=== PATIENT | female | born 1990 | race Caucasian/White ===

== ENCOUNTER 2019-06-20 10:57 | Outpatient (CLI) | payer BC, SELFPAY ==
[2019-06-20] VITALS (8 sets, daily range): BP systolic 114–127; BP diastolic 56–66; PULSE 76–82; BMI 35.6
--- NOTE | ~2019-06-20 | US_ITS ---
EXAMINATION: US OB BPP wo non-stress EXAM DATE: 06/20/2019 12:49 INDICATION: Hypertension in . Third trimester. TECHNIQUE: Pelvic obstetrical transabdominal sonogram was performed by a technologist. There are mu ltiple grayscale and Doppler images available for interpretation. Comparison is made to prior examina tion from 04/02/2019. FINDINGS: There is a single fetus identified in vertex presentation with a heart rate of 136 beats pe r minute. The placenta is located in the fundal position. There is no sonographic evidence of retrop lacental hemorrhage identified. There is subjectively expected amount of amniotic fluid. BIOPHYSICAL PROFILE (performed by the technologist) breathing (30 sec sustained breathing in 30 minutes): 2 out of 2 movement (3 gross body movements in 30 minutes): 2 out of 2 tone (one episode of hzlbyls-dplhcyqtd-ajjdoag limb movement): 2 out of 2 Amniotic fluid pocket (2 cm): 2 out of 2 Total score: 8 out of 8 IMPRESSION: 1. Single fetus with heart rate of 136 bpm. 2. Normal biophysical profile score of 8 out of 8. Reviewed, dictated and finalized at location B. 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
[2019-06-20 12:42] LABS: Basophils Percent Auto 0.3 % (0.2-1.2); Eosinophils Absolute Auto 0.1 K/mm3 (0-0.3); Eosinophils Percent Auto 0.7 % (0-4.4); Hematocrit 33.8 % (37.0-47.0); Hemoglobin 10.8 g/dL (12.0-15.0); Immature Granulocyte Absolute 0.07 K/mm3 (0.00-0.031); Immature Granulocyte Percent A 0.7 % (0-0.5); Lymphocytes Absolute Auto 2.27 K/mm3 (0.9-3.2); Lymphocytes Percent Auto 21.9 % (18.3-44.2); Mean Corpuscular Hemoglobin 27.1 pg (26-34); Mean Corpuscular Volume 84.9 fl (80-100); Mean Platelet Volume 11.1 fl (7.4-10.4); Monocytes Absolute Auto 0.5 K/mm3 (0.1-0.6); Monocytes Percent Auto 4.9 % (2.6-8.5); Neutrophils Absolute Auto 7.4 K/mm3 (1.3-6.7); Neutrophils Percent Auto 71.5 % (45.5-73.1); Platelet Count Result 172 k/mm3 (150-375); Red Blood Count 3.98 M/mm3 (4.2-5.4); Red Cell Distribution Width 13.8 % (11.5-14.5); White Blood Count 10.4 K/mm3 (4.5-10.0)
[2019-06-20 12:46] LABS: Add Urine Microscopic? NO; Appearance Urine Clear (Clear); Bilirubin Urine Negative (Negative); Blood Urine Negative (Negative); Color Urine Colorless (Yellow); Glucose Urine UA Negative (Negative); Ketones Urine Negative (Negative); Leukocyte Esterase Ur Negative LEU/UL (Negative); Nitrate Urine Negative (Negative); Protein Urine Negative (Negative); Specific Grav Ur 1.006 (1.001-1.035); Urobilinogen Urine Negative mg/dL (<2.0)
[2019-06-20 12:47] LABS: Bacteria Urine Trace /hpf; Squamous Epithelial Cell Urine Few /hpf (Few); WBC Urine 0-3 /hpf
[2019-06-20 12:53] LABS: Creatinine Urine 24.4 mg/dL; Total Protein Urine Random 12 mg/dL
[2019-06-20 12:54] LABS: Alanine Aminotransferase 12 U/L (4-35); Albumin Level 3.4 g/dL (3.5-5.1); Alkaline Phosphatase 110 U/L (38-126); Aspartate Amino Transferase 16 U/L (14-36); Bilirubin,Total 0.1 mg/dL (0.2-1.3); Blood Urea Nitrogen 8 mg/dL (7-17); Calcium 8.8 mg/dL (8.4-10.2); Carbon Dioxide 22 mmol/L (22-30); Chloride 103 mmol/L (98-107); Estimated Glomerular Filt Rate > 60; Glucose 98 mg/dL (65-105); Glucose 1 Hour PP 50gm Dose 103 mg/dL; Potassium 4.1 mmol/L (3.4-5.0); Sodium 138 mmol/L (137-145); Uric Acid 3.5 mg/dL (2.5-7.5)
--- NOTE | 2019-06-20 13:01 | PC.NURSE ---
Dr. Marte returned call and informed of BP's, reactive NST, BPP 12/13, and lab results. OK to discharge pt to home. Pt to complete 24 hr urine collection and return to OB unit.
== END 2019-06-20 13:08 | disposition home or self-care (01) ==
LOC: ANHOBOP 11:01 → ANHOBPP 11:02
PROVIDERS: Visit Provider Obstetrics & Gynecology
DX: O13.9 Gestational [pregnancy-induced] hypertension without significant proteinuria, unspecified trimester (principal); Z3A.00 Weeks of gestation of pregnancy not specified
CPT/HCPCS: 36415; 59025; 76819; 80053; 81003; 82570; 82947; 84156; 84550; 85025

== ENCOUNTER 2019-06-21 12:34 | Outpatient (CLI) | payer BC, SELFPAY ==
[2019-06-21 13:04] VITALS: BMI 36.2
[2019-06-21 13:35] LABS: Collection Time Urine 24 HOURS
[2019-06-21 13:42] LABS: Creatinine Urine 57.9 mg/dL; Patient Weight 224 Lbs; Total Protein Urine Random 11 mg/dL
[2019-06-21 14:17] LABS: Creatinine Clearance Urine 171.8 ml/min (75-125); Specific Gravity Ur 1.008; Total Volume 24 Hour Urine 3100 ml
[2019-06-21 16:32] LABS: Total Protein Urine 24 Hr < 7 MG/DAY (28-141)
== END 2019-06-21 12:35 | disposition home or self-care (01) ==
PROVIDERS: Visit Provider Obstetrics & Gynecology
DX: O13.9 Gestational [pregnancy-induced] hypertension without significant proteinuria, unspecified trimester (principal); Z3A.00 Weeks of gestation of pregnancy not specified
CPT/HCPCS: 81050; 82575; 84156

== ENCOUNTER 2019-07-19 08:24 | Observation (INO) | payer BC, SELFPAY ==
[2019-07-19] VITALS (8 sets, daily range): BP systolic 118–133; BP diastolic 60–69; PULSE 78–91; BMI 36.6
--- NOTE | ~2019-07-19 | US_ITS ---
EXAMINATION: US OB follow up w BPP, US umbilical doppler DATE: 07/20/2019 07:48 INDICATION: Oligohydramnios, third trimester TECHNIQUE: Real-time pelvic ultrasound was performed. The interpreting radiologist was not present fo r the study. COMPARISON: 07/19/2019 FINDINGS: There is a single living fetus in breech presentation. The placenta is fundal. heart rate is 14 2 beats per minute (bpm). The amniotic fluid index is 7.4 cm which is low (normal range: 8.6 cm to 24 .2 cm). Biophysical profile performed by the technologist: breathing (30 sec sustained breathing in 30 minutes): 2 out of 2 movement (3 gross body movements in 30 minutes): 2 out of 2 tone (one episode of gzstzhv-fpsgbesgj-tpirklq limb movement): 2 out of 2 Amniotic fluid pocket (2 cm): 2 out of 2 Total score: 8 out of 8 Umbilical artery pulsed Doppler demonstrates peak systolic to end-diastolic velocity ratios (S/D rati os) of 2.4, 2.2 near the fetus, 3.0, 2.6 in the mid cord, and 2.4, 2.3 near the placenta (5th percent ile = 2.16, 95th percentile = 3.81). The following biometric data were obtained: Biparietal diameter (BPD): 8.1 cm; head circumference (HC): 30.4 cm; abdominal circumference (AC): 29 .6 cm; femur length (FL): 6.6 cm. These measurements are concordant. Estimated weight is 2272 g +/- 340 g, which correlates with the 74th percentile when 09/09/2019 i s used as estimated date of delivery. As single measurements, these parameters are each equal to the following estimated gestational ages w ith ranges of +/- 2 standard deviations: BPD: 32 weeks 5 days +/- 3 weeks 1 days. HC: 33 weeks 6 days +/- 3 weeks 0 days. AC: 33 weeks 4 days +/- 3 weeks 0 days. FL: 34 weeks 3 days +/- 3 weeks 0 days. estimated gestational age based solely on measurements from this exam is 33 weeks 5 days +/- 2 weeks 2 days. IMPRESSION: 1. Single living fetus in breech presentation. 2. Biophysical profile 8 out of 8. 3. Oligohydramnios. 4. Normal umbilical artery Dopplers. 5. Estimated weight is 2272 g +/- 340 g, which correlates with the 74th percentile when 0 is used as estimated date of delivery. Reviewed, dictated and finalized at location A. IMPRESSION: 1. Single living fetus in breech presentation. 2. Biophysical profile 8 out of 8. 3. Oligohydramnios. 4. Normal umbilical artery Dopplers. 5. Estimated weight is 2272 g +/- 340 g, which correlates with the 74th p ercentile when 09/09/2019 is used as estimated date of delivery.
--- NOTE | 2019-07-19 08:24 | OBADM ---
This patient, Sapphire Blount, admitted to the OB room OB Post 113 for observation. Patient/family oriented to hospital policies and general routines including ID bracelet, bed and alarms, visiting hours, pain management, procedures, bathroom and other care routines, personal items, smoking policy, room service/diet, and visiting hours. Patient/Family are encouraged to report perceived risks to care and to ask questions if they do not understand what they are told or what they should do.
[2019-07-19] MEDS: SODIUM CHLORIDE 0.9% IV 1,000 ML 125 ML IV CONT ×2 (10:48→18:46)
[2019-07-19 10:55] LABS: Basophils Percent Auto 0.3 % (0.2-1.2); Eosinophils Percent Auto 0.3 % (0-4.4); Hematocrit 33.8 % (37.0-47.0); Immature Granulocyte Absolute 0.07 K/mm3 (0.00-0.031); Immature Granulocyte Percent A 0.7 % (0-0.5); Lymphocytes Absolute Auto 2.32 K/mm3 (0.9-3.2); Lymphocytes Percent Auto 21.8 % (18.3-44.2); Mean Corpuscular HGB Conc 32.5 g/dl (32-36); Mean Corpuscular Hemoglobin 26.9 pg (26-34); Mean Corpuscular Volume 82.6 fl (80-100); Mean Platelet Volume 11.4 fl (7.4-10.4); Monocytes Absolute Auto 0.5 K/mm3 (0.1-0.6); Monocytes Percent Auto 4.8 % (2.6-8.5); Neutrophils Absolute Auto 7.7 K/mm3 (1.3-6.7); Neutrophils Percent Auto 72.1 % (45.5-73.1); Platelet Count Result 185 k/mm3 (150-375); Red Blood Count 4.09 M/mm3 (4.2-5.4); Red Cell Distribution Width 13.8 % (11.5-14.5); White Blood Count 10.7 K/mm3 (4.5-10.0)
[2019-07-19 11:07] LABS: Potassium 3.8 mmol/L (3.4-5.0)
[2019-07-19 11:08] LABS: Alanine Aminotransferase 15 U/L (4-35); Albumin Level 3.5 g/dL (3.5-5.1); Alkaline Phosphatase 126 U/L (38-126); Aspartate Amino Transferase 19 U/L (14-36); Bilirubin,Total 0.2 mg/dL (0.2-1.3); Blood Urea Nitrogen 7 mg/dL (7-17); Calcium 8.6 mg/dL (8.4-10.2); Carbon Dioxide 21 mmol/L (22-30); Chloride 107 mmol/L (98-107); Estimated Glomerular Filt Rate > 60; Glucose 99 mg/dL (65-105); Sodium 136 mmol/L (137-145); Uric Acid 3.5 mg/dL (2.5-7.5)
[2019-07-20] MEDS: SODIUM CHLORIDE 0.9% IV 1,000 ML 125 ML IV CONT (02:36)
[2019-07-20 06:46] VITALS: BP 122/69; PULSE 85; RESP 18; TEMP 36.6
[2019-07-20 07:07] VITALS: BP 122/69; PULSE 83
--- NOTE | 2019-08-28 13:30 | PM.OBTRLD ---
OB - Triage/Final Diagnosis Evaluation Laboratory results: Laboratory Tests 07/19/19 07/19/19 10:46 10:46 WBC 10.7 H RBC 4.09 L Hgb 11.0 L Hct 33.8 L MCV 82.6 MCH 26.9 MCHC 32.5 RDW 13.8 Plt Count 185 MPV 11.4 H Immature Gran % (Auto) 0.7 H Neut % (Auto) 72.1 Lymph % (Auto) 21.8 [place] % (Auto) 4.8 Eos % (Auto) 0.3 Baso % (Auto) 0.3 Lymph # (Auto) 2.32 [place] # (Auto) 0.5 Eos # (Auto) 0.0 Baso # (Auto) 0.0 Abs Immat Gran (auto) 0.07 H Absolute Neuts (auto) 7.7 H Absolute Nucleated RBC 0.0 Nucleated RBC % 0.0 Sodium 136 L Potassium 3.8 Chloride 107 Carbon Dioxide 21 L BUN 7 Creatinine 0.50 L Estim Creat Clear Calc Not Reportable Estimated GFR > 60 Glucose 99 Uric Acid 3.5 Calcium 8.6 Total Bilirubin 0.2 AST 19 ALT 15 Alkaline Phosphatase 126 Total Protein 7.0 Albumin 3.5 Final Diagnosis (1) Gestational hypertension: Code(s): O13.9 - Gestational [-induced] hypertension without significant proteinuria, unspecified trimester Status: Acute (2) Oligohydramnios antepartum: Code(s): O41.00X0 - Oligohydramnios, unspecified trimester, not applicable or unspecified Status: Acute
== END 2019-07-20 09:25 | disposition home or self-care (01) ==
PROVIDERS: Admitting Provider Obstetrics & Gynecology; Visit Provider Obstetrics & Gynecology
DX: O13.3 Gestational [pregnancy-induced] hypertension without significant proteinuria, third trimester (principal); O41.03X0 Oligohydramnios, third trimester, not applicable or unspecified; Z3A.32 32 weeks gestation of pregnancy
CPT/HCPCS: 36415; 59025; 76816; 76819; 76820; 80053; 84550; 85025; 96360; 96361; G0378; G0379; J7030

== ENCOUNTER 2019-07-26 12:07 | Outpatient (RCR) | payer BC, SELFPAY ==
[2019-07-25] MEDS: BETAMETHASONE SOD PHOS/ACETATE 30 MG/5 ML VIAL 12 MG IM (11:58)
[2019-07-26] MEDS: BETAMETHASONE SOD PHOS/ACETATE 30 MG/5 ML VIAL 12 MG IM (13:09)
--- NOTE | 2019-08-05 14:17 | PM.OBTRLD ---
OB - Triage/Final Diagnosis Final Diagnosis (1) Gestational hypertension: Code(s): O13.9 - Gestational [-induced] hypertension without significant proteinuria, unspecified trimester Status: Acute (2) Oligohydramnios antepartum: Code(s): O41.00X0 - Oligohydramnios, unspecified trimester, not applicable or unspecified Status: Acute
== END 2019-08-26 08:39 | disposition home or self-care (01) ==
LOC: ANHOBOP 12:07
PROVIDERS: Family Provider Obstetrics & Gynecology; Visit Provider Obstetrics & Gynecology
DX: Z36.89 Encounter for other specified antenatal screening (principal); Z29.13 Encounter for prophylactic Rho(D) immune globulin; O36.8990 Maternal care for other specified fetal problems, unspecified trimester, not applicable or unspecified; Z3A.00 Weeks of gestation of pregnancy not specified
CPT/HCPCS: 36415; 59025; 76815; 76819; 76820; 80053; 84550; 85025; 86592; 86703; 96372; G0432; J0702

== ENCOUNTER 2019-08-15 10:14 | Outpatient (RCR) | payer BC, SELFPAY ==
[2019-07-04 11:27] VITALS: BP 116/61; PULSE 145
[2019-07-08 10:14] VITALS: BP 122/69; PULSE 80
[2019-07-10 11:34] VITALS: BP 125/60; PULSE 89
[2019-07-13 16:54] VITALS: BP 128/64; PULSE 75
[2019-07-16 11:50] VITALS: BP 120/68; PULSE 78
--- NOTE | 2019-07-19 10:00 | PC.NURSE ---
See observation admission for charting.
--- NOTE | 2019-07-26 10:29 | PM.IMHP ---
H&P: HPI History of Present Illness Chief complaint: nst Narrative: Sapphire Blount is a 28 year old female with history of borderline oligohydramnios and history of gestational hypertension. She was seen today for surveillance testing. Her MIMI 5.7. She was admitted and recommended for IV hydration and repeat MIMI the next morning. Review of Systems Review of Systems: All systems reviewed & are unremarkable except as noted in HPI and below Constitutional: Constitutional: Reports no additional constitutional complaints and Denies headache(s) Eyes: Eyes: Denies spots in vision ENT: Reports system reviewed and no additional complaints, except as documented and Denies headache(s) Cardiovascular: Cardiovascular: Denies chest pain and Denies dyspnea Respiratory: Respiratory: Denies dyspnea Gastrointestinal: Gastrointestinal: Reports no additional gastrointestinal complaints Genitourinary: Genitourinary: Reports amenorrhea Musculoskeletal: Musculoskeletal: Reports no additional musculoskeletal complaints Integumentary/Breasts: Skin/Breast: Denies breast mass and Denies rash Neurologic: Denies headache(s) Psychiatric: Psychiatric: Reports no additional psychiatric complaints [facility] Past Medical History Medical History Dermoid cyst Gestational hypertension Surgical History Surgical History H/O ovarian cystectomy Family History Family History Grandparent Family history of malignant neoplasm of breast, Onset Age: 69 Diabetes mellitus Hypertension Family history of elevated blood lipids Acute myocardial infarction Mother Family history of malignant neoplasm of breast in first degree relative, Onset Age: 36 Patient's mother is Family history of schizophrenia Family history of malignant neoplasm of breast, Onset Age: 36 Social History Social History Smoking status: Never smoker Second hand tobacco smoke exposure: No Alcohol intake: current Meds Home Medications and Allergies Home Medications Medication Instructions Recorded Confirmed Type vit 123-iron 28 mg-folic 1 cap PO DAILY 04/02/19 07/10/19 History acid 800 [id number] 235 mg capsule cholecalciferol (vitamin D3) 2,000 unit PO DAILY 02/13/20 03/04/20 History [Vitamin D3] Allergies Allergy/AdvReac Type Severity Reaction Status Date / Time No Known Allergies Allergy Verified 07/25/19 10:54 Exam Const: General: cooperative and healthy appearing HENMT: Head: normal to inspection Resp: Effort & Inspection: normal respiratory effort GI: Inspection: other (gravid uterus) Extrem: General: normal to inspection Psych: Appearance: grossly normal Assessment and Plan Assessment and plan (1) Oligohydramnios antepartum: Code(s): O41.00X0 - Oligohydramnios, unspecified trimester, not applicable or unspecified Status: Acute Assessment and Plan: Borderline oligohydramnios based on normal MIMI of 5-25. Admit for IV hydration. Repeat MIMI in AM. Dopplers and EFW in AM. (2) Gestational hypertension: Code(s): O13.9 - Gestational [-induced] hypertension without significant proteinuria, unspecified trimester Status: Acute Assessment and Plan: Blood pressures nomal. No signs of pre-eclampsia. Continue surveillance. Monitor for signs symptoms of pre-eclampsia.
--- NOTE | 2019-07-26 10:35 | P.DS_ITS ---
DS: Diagnosis Admitting Diagnosis Admitting Diagnosis: Oligohydramnios, unspecified trimester, not applicable or u nspecified. Gestational hypertension. OB - DS: Summary Hospital Course Hospital Course: Patient was admitted and started on IV fluids. She had NST every shilft which was reassuring. Her follow up MIMI was improved 6.8. She declined on admission any leaking of fluid. Her BPP and umbilical dopplers normal. EFW normal at 74%. She was discharged and recommended to minimize any vigorous activity. Recommend to stop working. Repeat MIMI on Mon. Gestational hypertension precautions discussed. Time spent discussing smoking cessation with patient: 3 to 10 minutes OB Procedures : NST and Ultrasound OB Procedures Intrapartum: Other (IV hydration) OB Procedures: : Other (NA) Status at Discharge Functional status at discharge: independent ambulation Time Spent with Patient Time attestation: Total time spent providing and/or coordinating discharge services: Exam Narrative: Exam Narrative: Patient alert. Abdomen- nontender Ext nontender Const: General: comfortable Resp: Effort & Inspection: normal respiratory effort Psych: Appearance: grossly normal Discharge Plan Departure Attending Physician: Conrad Marte Prescriptions: No Action One-A-Day Women's 1 28 mg iron- 800 mcg-235 mg capsule 1 cap PO DAILY RF: 0 cholecalciferol (vitamin D3) [Vitamin D3] 50 mcg (2,000 unit) Capsule 2,000 unit PO DAILY RF: 0 Discharge Instructions: Recommend to stop working. No vigorous activity. Call for severe headache, scotomata or RUQ pain. labor precautions. Return on Mon or for MIMI. Dopplers weekly. Weekly labs. Kick count precautions discussed. Keep routine OB appointment.
[2019-07-26 12:18] LABS: Basophils Percent Auto 0.2 % (0.2-1.2); Eosinophils Percent Auto 0.1 % (0-4.4); Hematocrit 34.1 % (37.0-47.0); Hemoglobin 11.1 g/dL (12.0-15.0); Immature Granulocyte Absolute 0.15 K/mm3 (0.00-0.031); Lymphocytes Absolute Auto 2.66 K/mm3 (0.9-3.2); Lymphocytes Percent Auto 17.7 % (18.3-44.2); Mean Corpuscular HGB Conc 32.6 g/dl (32-36); Mean Platelet Volume 11.3 fl (7.4-10.4); Monocytes Absolute Auto 0.8 K/mm3 (0.1-0.6); Monocytes Percent Auto 5.5 % (2.6-8.5); Neutrophils Absolute Auto 11.4 K/mm3 (1.3-6.7); Neutrophils Percent Auto 75.5 % (45.5-73.1); Platelet Count Result 169 k/mm3 (150-375); Red Blood Count 4.11 M/mm3 (4.2-5.4); Red Cell Distribution Width 13.7 % (11.5-14.5); White Blood Count 15.1 K/mm3 (4.5-10.0)
[2019-07-26 12:25] VITALS: BP 116/61; PULSE 91
[2019-07-26 12:32] LABS: Alanine Aminotransferase 16 U/L (4-35); Albumin Level 3.5 g/dL (3.5-5.1); Alkaline Phosphatase 131 U/L (38-126); Aspartate Amino Transferase 18 U/L (14-36); Bilirubin,Total 0.1 mg/dL (0.2-1.3); Blood Urea Nitrogen 5 mg/dL (7-17); Calcium 8.6 mg/dL (8.4-10.2); Carbon Dioxide 19 mmol/L (22-30); Chloride 105 mmol/L (98-107); Estimated Glomerular Filt Rate > 60; Glucose 121 mg/dL (65-105); Potassium 3.5 mmol/L (3.4-5.0); Sodium 135 mmol/L (137-145)
--- NOTE | 2019-07-26 13:58 | PC.NURSE ---
1308- Pt back from U/S and voided. 1317- monitor reapplied. 1357- Dr. Marte informed of U/S (BPP 8/8, MIMI 10.4 cm, and normal umbilical dopplers) and lab results. Pt received 2nd dose of Celestone. Discussed variable decel that pt had at beginning of NST; NST reactive. Since return from U/S, FHT's 135 with moderate variability and reactive accels up to 160-180's; no further decelerations. OK to discharge to home.
[2019-07-29 11:45] VITALS: BP 112/65; PULSE 86
[2019-08-01 12:25] LABS: Hematocrit 35.4 % (37.0-47.0); Mean Corpuscular HGB Conc 31.1 g/dl (32-36); Mean Corpuscular Volume 83.7 fl (80-100); Mean Platelet Volume 11.4 fl (7.4-10.4); Platelet Count Result 172 k/mm3 (150-375); Red Blood Count 4.23 M/mm3 (4.2-5.4); Red Cell Distribution Width 13.8 % (11.5-14.5); White Blood Count 12.3 K/mm3 (4.5-10.0)
[2019-08-01 12:37] LABS: Potassium 4.2 mmol/L (3.4-5.0)
[2019-08-01 12:38] LABS: Alanine Aminotransferase 11 U/L (4-35); Albumin Level 3.5 g/dL (3.5-5.1); Alkaline Phosphatase 114 U/L (38-126); Aspartate Amino Transferase 16 U/L (14-36); Bilirubin,Total 0.2 mg/dL (0.2-1.3); Blood Urea Nitrogen 9 mg/dL (7-17); Carbon Dioxide 26 mmol/L (22-30); Chloride 105 mmol/L (98-107); Estimated Glomerular Filt Rate > 60; Glucose 113 mg/dL (65-105); Sodium 134 mmol/L (137-145); Uric Acid 4.3 mg/dL (2.5-7.5)
[2019-08-01 14:09] VITALS: BP 122/69; PULSE 115
[2019-08-02 08:57] VITALS: BP 118/78; PULSE 91
[2019-08-05 09:40] VITALS: BP 131/74; PULSE 90
--- NOTE | 2019-08-05 10:07 | PC.NURSE ---
Patient to office for OB appt, US results pending and office notified.
[2019-08-08 11:38] LABS: Basophils Percent Auto 0.3 % (0.2-1.2); Eosinophils Absolute Auto 0.1 K/mm3 (0-0.3); Eosinophils Percent Auto 0.5 % (0-4.4); Hematocrit 33.3 % (37.0-47.0); Hemoglobin 10.6 g/dL (12.0-15.0); Immature Granulocyte Percent A 0.8 % (0-0.5); Lymphocytes Absolute Auto 2.73 K/mm3 (0.9-3.2); Lymphocytes Percent Auto 23.2 % (18.3-44.2); Mean Corpuscular HGB Conc 31.8 g/dl (32-36); Mean Corpuscular Hemoglobin 26.4 pg (26-34); Mean Corpuscular Volume 82.8 fl (80-100); Mean Platelet Volume 11.4 fl (7.4-10.4); Monocytes Absolute Auto 0.7 K/mm3 (0.1-0.6); Monocytes Percent Auto 5.7 % (2.6-8.5); Neutrophils Absolute Auto 8.2 K/mm3 (1.3-6.7); Neutrophils Percent Auto 69.5 % (45.5-73.1); Platelet Count Result 148 k/mm3 (150-375); Red Blood Count 4.02 M/mm3 (4.2-5.4); Red Cell Distribution Width 14.3 % (11.5-14.5); White Blood Count 11.8 K/mm3 (4.5-10.0)
[2019-08-08 11:51] LABS: Alanine Aminotransferase 11 U/L (4-35); Albumin Level 3.3 g/dL (3.5-5.1); Alkaline Phosphatase 133 U/L (38-126); Aspartate Amino Transferase 16 U/L (14-36); Bilirubin,Total < 0.1 mg/dL (0.2-1.3); Blood Urea Nitrogen 6 mg/dL (7-17); Calcium 8.5 mg/dL (8.4-10.2); Carbon Dioxide 22 mmol/L (22-30); Chloride 106 mmol/L (98-107); Estimated Glomerular Filt Rate > 60; Glucose 92 mg/dL (65-105); Potassium 3.8 mmol/L (3.4-5.0); Sodium 134 mmol/L (137-145); Uric Acid 3.9 mg/dL (2.5-7.5)
[2019-08-08 14:37] VITALS: BP 127/64; PULSE 83
[2019-08-12 10:47] VITALS: BP 129/67; PULSE 81
--- NOTE | ~2019-08-15 | US_ITS ---
EXAMINATION: US OB limited DATE: 08/02/2019 09:28 INDICATION: Oligohydramnios during third trimester TECHNIQUE: Real-time ultrasound of the pelvis was performed. The interpreting radiologist was not pre sent for the study. COMPARISON: 08/01/2019 FINDINGS: There is a single living fetus in vertex presentation. The placenta is fundal. cardia c activity and movement are noted. heart rate is 134 beats per minute (bpm). The amniotic fluid index is 5.1 cm which is low (normal range: 8.1 cm to 24.8 cm). The largest vertical pocket me asures 3.4 cm. IMPRESSION: 1. Single living fetus in vertex presentation. 2. Oligohydramnios with the largest vertical pocket measuring 3.4 cm. Reviewed, dictated and finalized at location B.
--- NOTE | ~2019-08-15 | US_ITS ---
EXAMINATION: US umbilical doppler, US OB limited w BPP EXAM DATE: 07/26/2019 13:09 INDICATION: Gestational diabetes. Third trimester. TECHNIQUE: Pelvic obstetrical transabdominal sonogram was performed by a technologist. Umbilical art erial Doppler. There are multiple grayscale and Doppler images available for interpretation. Comparis on is made to prior examination from 07/23/2019. FINDINGS: There is a single fetus identified in breech presentation with a heart rate of 141 beats pe r minute. The placenta is located in the posterior position. There is no sonographic evidence of ret roplacental hemorrhage identified. The amniotic fluid index is 10.4 centimeters, which is normal. BIOPHYSICAL PROFILE (performed by the technologist) breathing (30 sec sustained breathing in 30 minutes): 2 out of 2 movement (3 gross body movements in 30 minutes): 2 out of 2 tone (one episode of ffzzkut-wbjgpztcu-oioxhqy limb movement): 2 out of 2 Amniotic fluid pocket (2 cm): 2 out of 2 Total score: 8 out of 8 UMBILICAL ARTERY DOPPLER Systolic/diastolic ratios obtained as follows: Near baby: 2.1 Mid aspect: 2.0 Near Placenta: 2.1 (The 5th -- 95th percentile range is 2.1 -- 3.7). IMPRESSION: 1. Single fetus with heart rate of 141 bpm. 2. Normal biophysical profile score of 8 out of 8. 3. No elevated umbilical artery Doppler ratios. Reviewed, dictated and finalized at location A. IMPRESSION: 1. Single fetus with heart rate of 141 bpm. 2. Normal biophysical profile score of 8 out of 8. 3. No elevated umbilical artery Doppler ratios.
--- NOTE | ~2019-08-15 | US_ITS ---
US OB limited 07/16/2019 12:06 Indication: Evaluate amniotic fluid index Procedure: High-resolution Limited obstetrical ultrasound Comparison: 07/10/2019 Findings: There is a single living intrauterine in vertex presentation. heart rate is 142 BPM. Placenta is posterior. Amniotic fluid index is below normal limits measuring 7.5 cm (normal range for gestational age is 8.6-24.2 cm). Impression: 1: Oligohydramnios. MIMI is 7.5 cm. Reviewed, dictated and finalized at location A. Impression: 1: Oligohydramnios. MIMI is 7.5 cm.
--- NOTE | ~2019-08-15 | US_ITS ---
EXAMINATION: 1. US OB limited w BPP 2. US umbilical doppler DATE: 08/08/2019 12:16 INDICATION: Oligohydramnios. Third trimester. TECHNIQUE: Real-time pelvic ultrasound was performed. COMPARISON: Ultrasound 08/05/2019 FINDINGS: There is a single living fetus in vertex presentation. The placenta is posterior and fundal. h eart rate is 141 beats per minute (bpm). The amniotic fluid index is 6.8 cm, which is low (5th percen tile is 7.9 cm). Biophysical profile performed by the technologist: breathing (30 sec sustained breathing in 30 minutes): 2 out of 2 movement (3 gross body movements in 30 minutes): 2 out of 2 tone (one episode of lpmxeno-vkiivhngx-astcvih limb movement): 2 out of 2 Amniotic fluid pocket (2 cm): 2 out of 2 Total score: 8 out of 8 Umbilical artery pulsed Doppler demonstrates a peak systolic to end-diastolic velocity ratio (S/D rat io) of 2.4 (5th percentile = 2.03, 95th percentile = 3.40). IMPRESSION: 1. Single living fetus in vertex presentation. 2. Biophysical profile 8 out of 8. 3. Normal umbilical artery Doppler. 4. Oligohydramnios. Reviewed, dictated and finalized at location A. IMPRESSION: 1. Single living fetus in vertex presentation. 2. Biophysical profile 8 out of 8. 3. Normal umbilical artery Doppler. 4. Oligohydramnios.
--- NOTE | ~2019-08-15 | US_ITS ---
EXAMINATION: US OB BPP wo non-stress, US umbilical doppler DATE: 07/29/2019 11:55 CDT INDICATION: Oligohydramnios. Gestational diabetes. TECHNIQUE: Real-time transabdominal obstetric ultrasound. FINDINGS: Ultrasound dated 07/26/2019 There is a single living fetus in breech presentation. The placenta is fundal without placenta previ a. cardiac activity and movement is noted with a heart rate of 161 beats per minute. A FI is below normal limits measuring 6.8 cm (normal range for gestational age is 7.2-24.8 cm). Biophysical profile: breathin of 2 movement: 2 of 2 tone: 2 of 2 Amniotic flud pocket: 2 of 2 Total score: 8 of 8 Umbilical artery pulsed Doppler demonstrates peak systolic to end-diastolic velocity ratios (S/D rati os) of 2.1. (5th percentile = 2.07, 95th percentile = 3.53). IMPRESSION: 1. Single living intrauterine in breech presentation. 2: Total biophysical profile score of 8/8. 3: Normal umbilical Doppler ratios. 4: Oligohydramnios. MIMI measures 6.8 cm. Reviewed, dictated and finalized at location A. IMPRESSION: 1. Single living intrauterine in breech presentation. 2: Total biophysical profile score of 8/8. 3: Normal umbilical Doppler ratios. 4: Oligohydramnios. MIMI measures 6.8 cm.
--- NOTE | ~2019-08-15 | US_ITS ---
EXAMINATION: US OB limited w BPP EXAM DATE: 07/19/2019 09:29 INDICATION: Gestational hypertension. Third trimester. TECHNIQUE: Pelvic obstetrical transabdominal sonogram was performed by a technologist. There are mu ltiple grayscale and Doppler images available for interpretation. Comparison is made to prior examina tion from 07/16/2019. FINDINGS: There is a single fetus identified in vertex presentation with a heart rate of 152 beats pe r minute. The placenta is located in the fundal position. There is no sonographic evidence of retrop lacental hemorrhage identified. AMNIOTIC FLUID INDEX Quadrant 1: 3.7 cm Quadrant 2: 0 cm Quadrant 3: 0 cm Quadrant 4: 2.0 cm Amniotic fluid index: 3.76 cm, Oligohydramnios (The 5th -- 95th percentile range is 7.7-24.2). BIOPHYSICAL PROFILE (performed by the technologist) breathing (30 sec sustained breathing in 30 minutes): 2 out of 2 movement (3 gross body movements in 30 minutes): 2 out of 2 tone (one episode of vjlmuyo-btvlczxav-plvqair limb movement): 2 out of 2 Amniotic fluid pocket (2 cm): 2 out of 2 Total score: 8 out of 8 IMPRESSION: 1. Single fetus with heart rate of 152 bpm. 2. Normal biophysical profile score of 8 out of 8. 3. Oligohydramnios, MIMI 5.76 cm. Reviewed, dictated and finalized at location B.
--- NOTE | ~2019-08-15 | US_ITS ---
EXAMINATION: US OB limited w BPP DATE: 07/08/2019 10:37 INDICATION: Hypertension in . Third trimester. TECHNIQUE: Real-time pelvic ultrasound was performed. COMPARISON: Ultrasound 06/20/2019 FINDINGS: There is a single living fetus in vertex presentation. The placenta is posterior and fundal. h eart rate is 163 beats per minute (bpm). The amniotic fluid index is 6.1 cm, which is low (5th percen tile is 8.8 cm). Biophysical profile performed by the technologist: breathing (30 sec sustained breathing in 30 minutes): 2 out of 2 movement (3 gross body movements in 30 minutes): 2 out of 2 tone (one episode of zznmkrw-uiowzbiok-bgkwigs limb movement): 2 out of 2 Amniotic fluid pocket (2 cm): 2 out of 2 Total score: 8 out of 8 IMPRESSION: 1. Single living fetus in vertex presentation. 2. Biophysical profile 8 out of 8. 3. Oligohydramnios. Reviewed, dictated and finalized at location A. ER SORTER
--- NOTE | ~2019-08-15 | US_ITS ---
EXAMINATION: US OB limited w BPP DATE: 07/10/2019 08:46 INDICATION: Assess biophysical profile and amniotic fluid index during third trimester . TECHNIQUE: Real-time pelvic ultrasound was performed. The interpreting radiologist was not present fo r the study. COMPARISON: None. FINDINGS: There is a single living fetus in vertex presentation. The placenta is posterior. heart rate i s 165 beats per minute (bpm). Normal amniotic fluid index of 10.5 cm (5th%-95%: 8.8-23.8 cm at 31 wee ks estimated gestational age). Biophysical profile performed by the technologist: breathing (30 sec sustained breathing in 30 minutes): 2 out of 2 movement (3 gross body movements in 30 minutes): 2 out of 2 tone (one episode of hwopmlr-xazpxfhxl-wskpllf limb movement): 2 out of 2 Amniotic fluid pocket (2 cm): 2 out of 2 Total score: 8 out of 8 IMPRESSION: 1. Single living fetus in vertex presentation with heart rate of 165 bpm. 2. Biophysical profile 8 out of 8. 3. Normal amniotic fluid index of 10.5 cm. Reviewed, dictated and finalized at location A. FINISHER
--- NOTE | ~2019-08-15 | US_ITS ---
EXAMINATION: 1. US OB limited w BPP 2. US umbilical doppler DATE: 08/12/2019 11:52 INDICATION: Gestational hypertension. Oligohydramnios. Third trimester. TECHNIQUE: Real-time pelvic ultrasound was performed. COMPARISON: Ultrasound 08/08/2019 FINDINGS: There is a single living fetus in breech presentation. The placenta is posterior. heart rate i s 133 beats per minute (bpm). The amniotic fluid index is 10.5 cm, which is normal. Biophysical profile performed by the technologist: breathing (30 sec sustained breathing in 30 minutes): 2 out of 2 movement (3 gross body movements in 30 minutes): 2 out of 2 tone (one episode of wdgfyfz-apwpllfzn-yqawasd limb movement): 2 out of 2 Amniotic fluid pocket (2 cm): 2 out of 2 Total score: 8 out of 8 Umbilical artery pulsed Doppler demonstrates a peak systolic to end-diastolic velocity ratio (S/D rat io) of 2.0 (5th percentile = 1.98, 95th percentile = 3.29). IMPRESSION: 1. Single living fetus in breech presentation. 2. Biophysical profile 8 out of 8. 3. Normal umbilical artery Doppler. Reviewed, dictated and finalized at location A. IMPRESSION: 1. Single living fetus in breech presentation. 2. Biophysical profile 8 out of 8. 3. Normal umbilical artery Doppler.
--- NOTE | ~2019-08-15 | US_ITS ---
EXAMINATION: US umbilical doppler, US OB limited w BPP DATE: 07/23/2019 12:21 INDICATION: Chronic hypertension. Assess amniotic fluid index, biophysical profile and umbilical holly rial Dopplers TECHNIQUE: Real-time pelvic ultrasound was performed. The interpreting radiologist was not present fo r the study. COMPARISON: 07/20/2019 FINDINGS: There is a single living fetus in breech presentation. The placenta is posterior. heart rate i s 124 beats per minute (bpm). Persistent oligohydramnios with amniotic fluid index of 6.8 cm (2.5th%- 97.5%: 7.4-27.4 at 33 weeks estimated gestational age). The umbilical artery demonstrates a peak systolic and diastolic velocity ratio of 2.0-2.2 at the fetu s, 2.2-2.4 in the mid cord and 3.4-2.6 near the placenta (5th%-95%: 2.11-3.67 at 33 weeks). Biophysical profile performed by the technologist: breathing (30 sec sustained breathing in 30 minutes): 2 out of 2 movement (3 gross body movements in 30 minutes): 2 out of 2 tone (one episode of klipkiv-sctxhuiik-cpyomiz limb movement): 2 out of 2 Amniotic fluid pocket (2 cm): 2 out of 2 Total score: 8 out of 8 IMPRESSION: 1. Single living fetus in breech presentation with heart rate of 124 bpm. 2. Biophysical profile 8 out of 8. 3. Oligohydramnios with amniotic fluid index of 6.8 cm. 4. Normal umbilical artery Dopplers. Reviewed, dictated and finalized at location A. IMPRESSION: 1. Single living fetus in breech presentation with heart rate of 124 bpm. 2. Biophysical profile 8 out of 8. 3. Oligohydramnios with amniotic fluid index of 6.8 cm. 4. Normal umbilical artery Dopplers.
--- NOTE | ~2019-08-15 | US_ITS ---
EXAMINATION: US OB limited w BPP, US umbilical doppler DATE: 08/01/2019 13:06 INDICATION: Hypertension during third trimester . Assess amniotic fluid index. TECHNIQUE: Real-time pelvic ultrasound was performed. The interpreting radiologist was not present fo r the study. COMPARISON: 07/29/2019 FINDINGS: There is a single living fetus in vertex presentation. The placenta is fundal. heart rate is 1 69 beats per minute (bpm). Oligohydramnios with amniotic fluid index of 5.2 cm (2.5th%-97.5%: 7.2-27. 8 at 34 weeks estimated gestational age) Biophysical profile performed by the technologist: breathing (30 sec sustained breathing in 30 minutes): 2 out of 2 movement (3 gross body movements in 30 minutes): 2 out of 2 tone (one episode of bumzmbm-kxcfkyzvv-ywkjoya limb movement): 2 out of 2 Amniotic fluid pocket (2 cm): 2 out of 2 Total score: 8 out of 8 The umbilical artery demonstrates a peak systolic and diastolic velocity ratio of 2.07at the fetus, 2 .8 in the mid cord and 2.05 near the placenta (5th%-95%: 2.07-3.53 at 34 weeks). IMPRESSION: 1. Single living fetus in vertex presentation with heart rate of 169 bpm. 2. Biophysical profile 8 out of 8. 3. Oligohydramnios with amniotic fluid index of 5.2 cm. 4. Umbilical artery peak systolic to diastolic ratio at the lower limits of normal at the fetus and p lacenta. Reviewed, dictated and finalized at location A. IMPRESSION: 1. Single living fetus in vertex presentation with heart rate of 169 bpm. 2. Biophysical profile 8 out of 8. 3. Oligohydramnios with amniotic fluid index of 5.2 cm. 4. Umbilical artery peak systolic to diastolic ratio at the lower limits of nor mal at the fetus and placenta.
--- NOTE | ~2019-08-15 | US_ITS ---
EXAMINATION: 1. US OB limited w BPP 2. US umbilical doppler DATE: 08/15/2019 12:09 INDICATION: Gestational hypertension. Third trimester. TECHNIQUE: Real-time pelvic ultrasound was performed. COMPARISON: Ultrasound 08/12/2019 FINDINGS: There is a single living fetus in vertex presentation. The placenta is posterior. heart rate i s 182 beats per minute (bpm). The amniotic fluid index is 10.3 cm, which is normal. Biophysical profile performed by the technologist: breathing (30 sec sustained breathing in 30 minutes): 2 out of 2 movement (3 gross body movements in 30 minutes): 2 out of 2 tone (one episode of fwutxjn-qjszkqxer-miwvndd limb movement): 2 out of 2 Amniotic fluid pocket (2 cm): 2 out of 2 Total score: 8 out of 8 Umbilical artery pulsed Doppler demonstrates a peak systolic to end-diastolic velocity ratio (S/D rat io) of 2.0 (5th percentile = 1.98, 95th percentile = 3.29). IMPRESSION: 1. Single living fetus in vertex presentation. 2. Biophysical profile 8 out of 8. 3. Normal umbilical artery Doppler. Reviewed, dictated and finalized at location A. IMPRESSION: 1. Single living fetus in vertex presentation. 2. Biophysical profile 8 out of 8. 3. Normal umbilical artery Doppler.
--- NOTE | ~2019-08-15 | US_ITS ---
EXAMINATION: US OB limited w BPP, US umbilical doppler DATE: 08/05/2019 09:59 INDICATION: Oligohydramnios. Gestational hypertension during third trimester . Assess biophy sical profile, amniotic fluid index and umbilical arterial Dopplers. TECHNIQUE: Real-time pelvic ultrasound was performed. The interpreting radiologist was not present fo r the study. COMPARISON: None. FINDINGS: There is a single living fetus in vertex presentation. The placenta is posterior fundal. heart rate is 180 beats per minute (bpm). Oligohydramnios with amniotic fluid index of 6.8 cm which greate r than 3 standard deviations below the mean (2.5th%-97.5%: 7.0-27.9 at 35 weeks estimated gestational age) The umbilical artery demonstrates a peak systolic and diastolic velocity ratio of 2.7 at the fetus, 2 .3 in the mid cord and 2.4 near the placenta (5th%-95%: 2.03-3.4 at 35 weeks). Biophysical profile performed by the technologist: breathing (30 sec sustained breathing in 30 minutes): 2 out of 2 movement (3 gross body movements in 30 minutes): 2 out of 2 tone (one episode of tctwksd-lbkqnygrm-ainujym limb movement): 2 out of 2 Amniotic fluid pocket (2 cm): 2 out of 2 Total score: 8 out of 8 IMPRESSION: 1. Single living fetus in vertex presentation with heart rate of 180 bpm which is tachycardic f or estimated gestational age. 2. Biophysical profile 8 out of 8. 3. Oligohydramnios with amniotic fluid index of 6.8 cm. 4. Normal umbilical arterial systolic to diastolic velocity ratios. Reviewed, dictated and finalized at location A. IMPRESSION: 1. Single living fetus in vertex presentation with heart rate of 180 bpm which is tachycardic for estimated gestational age. 2. Biophysical profile 8 out of 8. 3. Oligohydramnios with amniotic fluid index of 6.8 cm. 4. Normal umbilical arterial systolic to diastolic velocity ratios.
[2019-08-15 12:10] VITALS: BP 130/75; PULSE 84
[2019-08-15 12:12] LABS: Basophils Percent Auto 0.4 % (0.2-1.2); Eosinophils Absolute Auto 0.1 K/mm3 (0-0.3); Eosinophils Percent Auto 0.6 % (0-4.4); Immature Granulocyte Absolute 0.08 K/mm3 (0.00-0.031); Immature Granulocyte Percent A 0.7 % (0-0.5); Mean Corpuscular HGB Conc 32.4 g/dl (32-36); Mean Corpuscular Hemoglobin 26.6 pg (26-34); Mean Corpuscular Volume 82.1 fl (80-100); Mean Platelet Volume 11.6 fl (7.4-10.4); Monocytes Absolute Auto 0.7 K/mm3 (0.1-0.6); Monocytes Percent Auto 6.2 % (2.6-8.5); Neutrophils Absolute Auto 7.3 K/mm3 (1.3-6.7); Neutrophils Percent Auto 67.1 % (45.5-73.1); Platelet Count Result 168 k/mm3 (150-375); Red Blood Count 4.14 M/mm3 (4.2-5.4); Red Cell Distribution Width 14.4 % (11.5-14.5); White Blood Count 10.8 K/mm3 (4.5-10.0)
[2019-08-15 12:24] LABS: Alanine Aminotransferase 13 U/L (4-35); Albumin Level 3.6 g/dL (3.5-5.1); Alkaline Phosphatase 142 U/L (38-126); Aspartate Amino Transferase 19 U/L (14-36); Bilirubin,Total 0.2 mg/dL (0.2-1.3); Blood Urea Nitrogen 6 mg/dL (7-17); Calcium 9.1 mg/dL (8.4-10.2); Carbon Dioxide 21 mmol/L (22-30); Chloride 106 mmol/L (98-107); Estimated Glomerular Filt Rate > 60; Glucose 96 mg/dL (65-105); Sodium 135 mmol/L (137-145); Uric Acid 3.8 mg/dL (2.5-7.5)
[2019-08-15 13:04] LABS: HIV 1/2 Ab P24 Ag Result Negative (Negative)
[2019-08-16 11:34] LABS: Rapid Plasma Reagin Non-Reactive (NonReactive)
== END 2019-08-26 08:39 | disposition home or self-care (01) ==
LOC: ANHOBOP 10:14
PROVIDERS: Visit Provider Obstetrics & Gynecology
DX: O13.3 Gestational [pregnancy-induced] hypertension without significant proteinuria, third trimester (principal); O41.03X0 Oligohydramnios, third trimester, not applicable or unspecified; Z3A.29 29 weeks gestation of pregnancy; Z3A.30 30 weeks gestation of pregnancy; Z3A.31 31 weeks gestation of pregnancy; Z3A.32 32 weeks gestation of pregnancy; Z3A.33 33 weeks gestation of pregnancy; Z3A.34 34 weeks gestation of pregnancy; Z3A.35 35 weeks gestation of pregnancy; Z3A.36 36 weeks gestation of pregnancy
CPT/HCPCS: 36415; 59025; 76815; 76819; 76820; 80053; 84550; 85025; 85027; 86592; 86703; 96372; G0432; J0702

== ENCOUNTER 2019-08-19 17:52 | Inpatient (IN) | payer BC, SELFPAY ==
[2019-08-19 18:36] VITALS: BP 134/77; PULSE 91
[2019-08-19 18:40] LABS: Basophils Percent Auto 0.2 % (0.2-1.2); Eosinophils Absolute Auto 0.1 K/mm3 (0-0.3); Eosinophils Percent Auto 0.6 % (0-4.4); Hematocrit 35.8 % (37.0-47.0); Hemoglobin 11.2 g/dL (12.0-15.0); Immature Granulocyte Absolute 0.07 K/mm3 (0.00-0.031); Immature Granulocyte Percent A 0.7 % (0-0.5); Lymphocytes Absolute Auto 2.76 K/mm3 (0.9-3.2); Mean Corpuscular HGB Conc 31.3 g/dl (32-36); Mean Corpuscular Hemoglobin 25.7 pg (26-34); Mean Corpuscular Volume 82.1 fl (80-100); Mean Platelet Volume 11.3 fl (7.4-10.4); Monocytes Absolute Auto 0.3 K/mm3 (0.1-0.6); Monocytes Percent Auto 2.8 % (2.6-8.5); Neutrophils Absolute Auto 7.4 K/mm3 (1.3-6.7); Neutrophils Percent Auto 69.7 % (45.5-73.1); Platelet Count Result 188 k/mm3 (150-375); Red Blood Count 4.36 M/mm3 (4.2-5.4); Red Cell Distribution Width 14.4 % (11.5-14.5); White Blood Count 10.6 K/mm3 (4.5-10.0)
[2019-08-19 19:18] VITALS: BP 146/75; PULSE 78
[2019-08-19] MEDS: DINOPROSTONE 10 MG VAG INSERT VAGINAL (19:20)
--- NOTE | 2019-08-19 19:23 | LDADM ---
This patient, Sapphire Blount, was admitted to Labor/Delivery/Recovery 107 on 08/19/19 at 17:52. Plans for labor, pain management and were discussed with patient. Patient/family oriented to hospital policies and general routines including ID bracelet, bed and alarms, visiting hours, pain management, procedures, bathroom and other care routines, personal items, smoking policy, room service/diet and guest tray routines, infant security routines, and visiting hours. Patient/Family are encouraged to report perceived risks to care and to ask questions if they do not understand what they are told or what they should do. See OBIX for further documentation.
[2019-08-19 19:26] VITALS: BMI 36.6
[2019-08-19 20:00] VITALS: TEMP 36.6
--- NOTE | 2019-08-19 20:00 | WPDANESEPP ---
Anes - Eval Pre Procedure Procedure: labor epidural Date/Time: 08/19/19 20:00 Surgeon: Rosanna Preop Diagnosis: Labor pain Pre Op Diagnosis: Induction of Labor Patient Data Age: 29 Gender: F Height: 1.68 m Weight: 103 kg Last Vital Signs Pulse 78 08/19/19 19:18 BP 146/75 H 08/19/19 19:18 Allergies Allergy/AdvReac Type Severity Reaction Status Date / Time No Known Allergies Allergy Verified 08/12/19 09:40 Home Medications Medication Instructions Recorded Confirmed Type vit 123-iron 28 mg-folic 1 cap PO DAILY 04/02/19 08/19/19 History acid 800 [id number] 235 mg capsule cholecalciferol (vitamin D3) 2,000 unit PO DAILY 06/20/19 08/19/19 History [Vitamin D3] acetaminophen [Tylenol] 325 mg PO Q4H PRN 07/26/19 08/19/19 History calcium carbonate [Tums] 200 mg PO QID PRN 07/26/19 08/19/19 History Laboratory Tests 08/19/19 08/19/19 08/19/19 18:33 18:33 18:33 WBC 10.6 K/mm3 H K/mm3 (4.5-10.0) RBC 4.36 M/mm3 M/mm3 (4.2-5.4) Hgb 11.2 g/dL L g/dL (12.0-15.0) Hct 35.8 % L % (37.0-47.0) MCV 82.1 fl fl (80-100) MCH 25.7 pg L pg (26-34) MCHC 31.3 g/dl L g/dl (32-36) RDW 14.4 % % (11.5-14.5) Plt Count 188 k/mm3 k/mm3 (150-375) MPV 11.3 fl H fl (7.4-10.4) Immature Gran % (Auto) 0.7 % H % (0-0.5) Neut % (Auto) 69.7 % % (45.5-73.1) Lymph % (Auto) 26.0 % % (18.3-44.2) [place] % (Auto) 2.8 % % (2.6-8.5) Eos % (Auto) 0.6 % % (0-4.4) Baso % (Auto) 0.2 % % (0.2-1.2) Lymph # (Auto) 2.76 K/mm3 K/mm3 (0.9-3.2) [place] # (Auto) 0.3 K/mm3 K/mm3 (0.1-0.6) Eos # (Auto) 0.1 K/mm3 K/mm3 (0-0.3) Baso # (Auto) 0.0 K/mm3 K/mm3 (0.0-0.1) Abs Immat Gran (auto) 0.07 K/mm3 H K/mm3 (0.00-0.031) Absolute Neuts (auto) 7.4 K/mm3 H K/mm3 (1.3-6.7) Absolute Nucleated RBC 0.0 K/mm3 K/mm3 (0.0-0.012) Nucleated RBC % 0.0 % % (0.0-0.2) RPR Pending Blood Type O Positive Antibody Screen Negative Patient hx anesthesia problems: none Family hx anesthesia problems: none PMFSH Social History Social History Smoking status: Never smoker Second hand tobacco smoke exposure: No Alcohol intake: current Substance use: never Gender identity (if verbalized by the patient): Female Spiritual care concerns: No Exam Day of Procedure 08/19/19 20:00 Patient weight: obese
[2019-08-19 20:30] LABS: Albumin Level 3.8 g/dL (3.5-5.1); Alkaline Phosphatase 158 U/L (38-126); Aspartate Amino Transferase 22 U/L (14-36); Bilirubin,Total 0.1 mg/dL (0.2-1.3); Blood Urea Nitrogen 6 mg/dL (7-17); Carbon Dioxide 19 mmol/L (22-30); Chloride 107 mmol/L (98-107); Estimated CRCL calculation 141 ml/min; Estimated Glomerular Filt Rate > 60; Glucose 139 mg/dL (65-105); Potassium 3.5 mmol/L (3.4-5.0); Sodium 135 mmol/L (137-145)
[2019-08-19 20:31] LABS: Alanine Aminotransferase < 20 U/L (4-35)
[2019-08-19 20:50] VITALS: BP 129/71; PULSE 81
[2019-08-20] VITALS (140 sets, daily range): BP systolic 89–142; BP diastolic 41–89; PULSE 51–115; TEMP 36.4–37.1; O2SAT 89–100
[2019-08-20 07:30] LABS: Rapid Plasma Reagin Non-Reactive (NonReactive)
[2019-08-20] MEDS: LACTATED RINGERS 1,000 ML 125 ML IV CONT ×3 (08:15→20:43)
[2019-08-20] MEDS: OXYTOCIN 30 UNITS/NS 500 ML 30 UNITS/500 ML BAG IV CONT (08:16)
--- NOTE | 2019-08-20 14:54 | PM.IMHP ---
H&P: HPI History of Present Illness Chief complaint: Induction of Labor Narrative: Sapphire Blount is a 29 year old female . LMP EDC Admitted for MIL for gestational hypertension. PNC also significant for borderline oligohydramnios. MIMI measured the lowest at 5.2. Had had normal surveillance test and normal dopplers. Normal growth curve. Also has demonstrated deepest pocket greater than 2 with MIMI measurement. No headache, scotomata or RUQ pain. Review of Systems Review of Systems: All systems reviewed & are unremarkable except as noted in HPI and below Constitutional: Constitutional: Reports no additional constitutional complaints and Denies headache(s) Eyes: Eyes: Denies spots in vision ENT: Reports system reviewed and no additional complaints, except as documented and Denies headache(s) Cardiovascular: Cardiovascular: Denies chest pain and Denies dyspnea Respiratory: Respiratory: Denies dyspnea Gastrointestinal: Gastrointestinal: Reports no additional gastrointestinal complaints Genitourinary: Genitourinary: Reports amenorrhea Musculoskeletal: Musculoskeletal: Reports no additional musculoskeletal complaints Integumentary/Breasts: Skin/Breast: Denies breast mass and Denies rash Neurologic: Denies headache(s) Psychiatric: Psychiatric: Reports no additional psychiatric complaints [facility] Past Medical History Medical History Dermoid cyst Gestational hypertension Oligohydramnios antepartum Surgical History Surgical History H/O ovarian cystectomy Family History Family History Grandparent Family history of malignant neoplasm of breast, Onset Age: 69 Diabetes mellitus Hypertension Family history of elevated blood lipids Acute myocardial infarction Mother Family history of malignant neoplasm of breast in first degree relative, Onset Age: 36 Patient's mother is Family history of schizophrenia Family history of malignant neoplasm of breast, Onset Age: 36 Social History Social History Smoking status: Never smoker Second hand tobacco smoke exposure: No Alcohol intake: current Substance use: never Gender identity (if verbalized by the patient): Female Spiritual care concerns: No Meds Home Medications and Allergies Home Medications Medication Instructions Recorded Confirmed Type vit 123-iron 28 mg-folic 1 cap PO DAILY 04/02/19 08/19/19 History acid 800 [id number] 235 mg capsule cholecalciferol (vitamin D3) 2,000 unit PO DAILY 06/20/19 08/19/19 History [Vitamin D3] acetaminophen [Tylenol] 325 mg PO Q4H PRN 07/26/19 08/19/19 History calcium carbonate [Tums] 200 mg PO QID PRN 07/26/19 08/19/19 History Allergies Allergy/AdvReac Type Severity Reaction Status Date / Time No Known Allergies Allergy Verified 08/12/19 09:40 Vital Signs Vital Signs - 24 hr 08/19/19 18:36 08/19/19 19:18 08/19/19 20:00 Temperature 98 F Pulse Rate 91 78 Blood Pressure 134/77 146/75 H 08/19/19 20:50 08/20/19 01:19 08/20/19 05:27 Temperature Pulse Rate 81 74 71 Blood Pressure 129/71 132/66 118/70 08/20/19 05:30 08/20/19 05:31 08/20/19 05:46 Temperature 97.6 F Pulse Rate 63 57 L Blood Pressure 110/60 117/65 08/20/19 06:01 08/20/19 06:16 08/20/19 08:06 Temperature Pulse Rate 57 L 63 95 Blood Pressure 115/63 114/66 120/81 08/20/19 08:16 08/20/19 08:18 08/20/19 08:31 Temperature 97.9 F Pulse Rate 95 78 Blood Pressure 117/77 113/66 08/20/19 08:46 08/20/19 09:01 08/20/19 09:16 Temperature Pulse Rate 82 88 74 Blood Pressure 128/71 120/68 112/62 08/20/19 09:31 08/20/19 09:46 08/20/19 10:01 Temperature Pulse Rate 67 71 80 Blood Pressure 113/62 112/68 109/57 L 08/20/19
--- NOTE | 2019-08-20 14:55 | PM.OBPNVD ---
OB - PN: Subj Subjective Date/time seen: 08/20/19 0900 FHT 145, Cat 1, occasional ctx, cx /blot. Continue Pitocin induction. OB - PN: Obj Data Labs CBC & Chem 7: 08/19/19 18:33 08/19/19 18:34 Labs: Laboratory Results - last 24 hr 08/19/19 08/19/19 08/19/19 18:33 18:33 18:33 WBC 10.6 H RBC 4.36 Hgb 11.2 L Hct 35.8 L MCV 82.1 MCH 25.7 L MCHC 31.3 L RDW 14.4 Plt Count 188 MPV 11.3 H Immature Gran % (Auto) 0.7 H Neut % (Auto) 69.7 Lymph % (Auto) 26.0 [place] % (Auto) 2.8 Eos % (Auto) 0.6 Baso % (Auto) 0.2 Lymph # (Auto) 2.76 [place] # (Auto) 0.3 Eos # (Auto) 0.1 Baso # (Auto) 0.0 Abs Immat Gran (auto) 0.07 H Absolute Neuts (auto) 7.4 H Absolute Nucleated RBC 0.0 Nucleated RBC % 0.0 Sodium Potassium Chloride Carbon Dioxide BUN Creatinine Estim Creat Clear Calc Estimated GFR Glucose Calcium Total Bilirubin AST ALT Alkaline Phosphatase Total Protein Albumin RPR Non-reactive Blood Type O Positive Antibody Screen Negative 08/19/19 18:34 WBC RBC Hgb Hct MCV MCH MCHC RDW Plt Count MPV Immature Gran % (Auto) Neut % (Auto) Lymph % (Auto) [place] % (Auto) Eos % (Auto) Baso % (Auto) Lymph # (Auto) [place] # (Auto) Eos # (Auto) Baso # (Auto) Abs Immat Gran (auto) Absolute Neuts (auto) Absolute Nucleated RBC Nucleated RBC % Sodium 135 L Potassium 3.5 Chloride 107 Carbon Dioxide 19 L BUN 6 L Creatinine 0.60 L Estim Creat Clear Calc 141 Estimated GFR > 60 Glucose 139 H Calcium 9.0 Total Bilirubin 0.1 L AST 22 ALT < 20 Alkaline Phosphatase 158 H Total Protein 8.0 Albumin 3.8 RPR Blood Type Antibody Screen OB - PN A/P Time Spent With Patient Time: Total time spent is greater than 50% in coordination of care (as documented) at patient's floor/unit and/or counseling patient:
--- NOTE | 2019-08-20 14:58 | P.PNOB_ITS ---
OB - PN: Subj Subjective Date/time seen: 08/20/19 14:58 Baseline 140, cat 1, ctx irreg, cx 2.5/70/-2 AROM clear. Continue Pitocin. OB - PN: Obj Data Labs CBC & Chem 7: 08/19/19 18:33 08/19/19 18:34 Labs: Laboratory Results - last 24 hr 08/19/19 08/19/19 08/19/19 18:33 18:33 18:33 WBC 10.6 H RBC 4.36 Hgb 11.2 L Hct 35.8 L MCV 82.1 MCH 25.7 L MCHC 31.3 L RDW 14.4 Plt Count 188 MPV 11.3 H Immature Gran % (Auto) 0.7 H Neut % (Auto) 69.7 Lymph % (Auto) 26.0 [place] % (Auto) 2.8 Eos % (Auto) 0.6 Baso % (Auto) 0.2 Lymph # (Auto) 2.76 [place] # (Auto) 0.3 Eos # (Auto) 0.1 Baso # (Auto) 0.0 Abs Immat Gran (auto) 0.07 H Absolute Neuts (auto) 7.4 H Absolute Nucleated RBC 0.0 Nucleated RBC % 0.0 Sodium Potassium Chloride Carbon Dioxide BUN Creatinine Estim Creat Clear Calc Estimated GFR Glucose Calcium Total Bilirubin AST ALT Alkaline Phosphatase Total Protein Albumin RPR Non-reactive Blood Type O Positive Antibody Screen Negative 08/19/19 18:34 WBC RBC Hgb Hct MCV MCH MCHC RDW Plt Count MPV Immature Gran % (Auto) Neut % (Auto) Lymph % (Auto) [place] % (Auto) Eos % (Auto) Baso % (Auto) Lymph # (Auto) [place] # (Auto) Eos # (Auto) Baso # (Auto) Abs Immat Gran (auto) Absolute Neuts (auto) Absolute Nucleated RBC Nucleated RBC % Sodium 135 L Potassium 3.5 Chloride 107 Carbon Dioxide 19 L BUN 6 L Creatinine 0.60 L Estim Creat Clear Calc 141 Estimated GFR > 60 Glucose 139 H Calcium 9.0 Total Bilirubin 0.1 L AST 22 ALT < 20 Alkaline Phosphatase 158 H Total Protein 8.0 Albumin 3.8 RPR Blood Type Antibody Screen OB - PN A/P Time Spent With Patient Time: Total time spent is greater than 50% in coordination of care (as documented) at patient's floor/unit and/or counseling patient:
--- NOTE | 2019-08-20 22:21 | P.PCNOB_ITS ---
OB - Delivery Note Procedure Delivery date: 08/20/19 Procedure: Spontaneous vaginal delivery. events: Induced HTN and Oligohydramnios Intrapartal events: None Induction method: per misoprostol protocol Delivery augmentation: rupture of membranes and pitocin Delivery monitor: external FHT and internal uterine Route of delivery: Laceration description: None Specimen: Yes (Placenta and cord) Estimated blood loss (mL): 150 Anesthesia type: Epidural Disposition: floor Complications: None. Narrative: Patient was admitted for induction. She had cervidil placed on evening of 08/19/19. Pitocin was started 08/20/19. She had assisted rupture of membranes at approximately 1430. Clear fluid. She continued on Pitocin. IUPC placed and Pitocin adjusted. She dilated to complete. She pushed twice. She delivered a male at 2200. was vigorously crying and placed on maternal abdomen after the loose nuch al cord was manually reduced. Delayed cord clamping was performed until cessation of pulsation at approximately 30 seconds after delivery. The amniotic fluid was noted to be bloody. The placenta delivered soon after. Placenta was noted to be intact. Prior to delivery of placenta cord blood and cord gases were obtained. She did not have any lacerations. She tolerated procedure well. [place] Baby Date of : 08/20/19 Time of : 22:00 Weeks of gestation at delivery: 37 Infant gender: Male Weight (pounds): 6 Weight (ounces): 13 presentation: vertex position: Right Occiput Anterior Placenta delivery description: Spontaneous cord vessel description: 3 Vessels, Nuchal Cord (x one), Loose, Reduced (manually) and Clamped/Cut score one minute: 9 score five minutes: 9
[2019-08-20] MEDS: OXYTOCIN 30 UNITS/NS 500 ML 30 UNITS/500 ML BAG 125 UNITS IV CONT (22:30)
[2019-08-20] MEDS: IBUPROFEN 600 MG TABLET PO (23:27)
[2019-08-20] MEDS: BENZOCAINE 20% AER SPR (*SP) 56 GM CAN 1 SPRAY TOPICAL (23:40)
[2019-08-20] MEDS: WITCH HAZEL 40 PADS 1 PAD TOPICAL (23:40)
[2019-08-21 00:01] VITALS: BP 116/58; PULSE 78
[2019-08-21 00:16] VITALS: BP 115/57; PULSE 80
--- NOTE | 2019-08-21 00:25 | OBPPTRN ---
Patient transferred to post room #280 via wheelchair. baby in bassinet. Support person present. Oriented to unit, room, information board, rooming in, admission packet and security measures. Patient verbalizes understanding.
[2019-08-21 00:50] VITALS: BP 115/58; PULSE 83; RESP 16; TEMP 36.8; O2SAT 98
[2019-08-21 04:54] LABS: Hematocrit 31.1 % (37.0-47.0); Hemoglobin 9.9 g/dL (12.0-15.0)
[2019-08-21] MEDS: MULTIVIT/MIN/PREN/FOL AC/IRON TABLET 1 TAB PO (07:07)
[2019-08-21] MEDS: ACETAMINOPHEN 325 MG TABLET PO ×2 (07:07→14:37)
[2019-08-21] MEDS: IBUPROFEN 600 MG TABLET PO ×3 (07:07→20:31)
[2019-08-21] MEDS: POLYSACCHARIDE IRON COMPLEX 150 MG CAPSULE PO ×2 (07:07→16:12)
[2019-08-21 07:40] VITALS: BP 117/70; PULSE 71; RESP 18; TEMP 36.9; O2SAT 100
--- NOTE | 2019-08-21 09:45 | P.PNOB_ITS ---
OB - PN: Subj Subjective Date/time seen: 08/21/19 09:45 No headaches, visual disturbances or right upper quadrant pain. Patient comments: pain well controlled, tolerating diet and other (Decreasing lochia.) [place] baby status: doing well and nursing well feeding status: exclusively breast feeding OB - PN: Obj Data Labs CBC & Chem 7: 08/21/19 04:38 08/19/19 18:34 Labs: Laboratory Results - last 24 hr 08/21/19 04:38 Hgb 9.9 L Hct 31.1 L OB - PN A/P Plan day: 1 Plan: routine care Comments: Patient doing well. Time Spent With Patient Time: Total time spent is greater than 50% in coordination of care (as documented) at patient's floor/unit and/or counseling patient: Exam Psych: Affect: normal affect Other: Abd: fundus firm below umbilicus, nontender Perineum: healing Ext: nontender
--- NOTE | 2019-08-21 12:40 | PC.NURSE ---
Observed mother is able to latch correctly with correct positioning/alignment. Reviewed positioning/alignment, holding breast and asymmetrical latch on. Infant nursed eagerly, with steady draws and frequent swallowing noted. Reviewed signs of a correct latch, effective nursing and suck swallow ratio. Infant was able to maintain latch without discomfort to mother. Reviewed feeding cues, frequencies, duration of feedings, feeding elimination flow sheet, and signs of adequate intake. Nipple care reviewed. Instructed mother to call out for RN assistance if she is unable to latch infant for feeding or she has discomfort with nursing. Instructed feeding should be initiated three hours from start of last feeding or if feeding cues are noted before. Mother voiced understanding of information shared.
[2019-08-21] MEDS: ACETAMINOPHEN 325 MG TABLET 650 MG PO ×2 (12:50→20:30)
[2019-08-21 20:55] VITALS: BP 129/75; PULSE 75; RESP 18; TEMP 36.6; O2SAT 99
[2019-08-22] MEDS: ACETAMINOPHEN 325 MG TABLET 650 MG PO (05:18)
[2019-08-22] MEDS: IBUPROFEN 600 MG TABLET PO (05:18)
--- NOTE | 2019-08-22 06:11 | PC.NURSE ---
Patient was given the opportunity to view the discharge video Mother & Baby Care, The First Two Weeks and to ask questions. Patient declined viewing the video and has been given the mother/baby guide for home reference.
[2019-08-22 08:00] VITALS: BP 121/69; PULSE 80; RESP 18; TEMP 37.3; O2SAT 98
[2019-08-22] MEDS: POLYSACCHARIDE IRON COMPLEX 150 MG CAPSULE PO (08:49)
[2019-08-22] MEDS: MULTIVIT/MIN/PREN/FOL AC/IRON TABLET 1 TAB PO (08:49)
[2019-08-22] MEDS: DOCUSATE SODIUM 100 MG CAPSULE PO (08:49)
--- NOTE | 2019-08-22 09:00 | PC.NURSE ---
Observed mother is able to independently latch with appropriate positioning/alignment. She denies any nipple discomfort, is feeding as required and waking infant to feed if needed. has had [# of feedings] effective feedings in the past 24 hours, and is currently meeting outcomes for weight, output, jaundice and feeding frequencies. Mother states she feels confident to continue effective at home. Reviewed transition to breast milk, signs of adequate intake, and engorgement/relief. Instructed to call ICP if intake/output less than required. Reviewed regular medications mother is taking. Information provided per [place]. Reviewed community resources on the [facility] website and in the Mom/Baby guide. Information on outpatient services provided. Mother has no further questions at this time.
--- NOTE | 2019-08-22 11:12 | P.PNOB_ITS ---
OB - PN: Subj Subjective Date/time seen: 08/22/19 11:12 Patient comments: pain well controlled, tolerating diet and other (Decreasing lochia.) baby status: doing well and nursing well [place] feeding status: exclusively breast feeding OB - PN: Obj Data Labs CBC & Chem 7: 08/21/19 04:38 08/19/19 18:34 OB - PN A/P Plan day: 2 Plan: discharge home and other Comments: Patient doing well. Follow up 4-6 weeks. Discharge instructions provided. Time Spent With Patient Time: Total time spent is greater than 50% in coordination of care (as documented) at patient's floor/unit and/or counseling patient: Time with patient: less than 15 minutes Review of Systems Review of Systems: All systems reviewed & are unremarkable except as noted in HPI and below Constitutional: Constitutional: Reports no additional constitutional complaints Cardiovascular: Cardiovascular: Denies dyspnea Respiratory: Respiratory: Denies dyspnea Gastrointestinal: Gastrointestinal: Reports no additional gastrointestinal complaints and Denies abdominal pain Genitourinary: Genitourinary: Reports no additional female genitourinary complaints Exam Psych: Affect: normal affect Other: Abd: fundus firm below umbilicus, nontender Perineum: healing Ext: nontender
--- NOTE | 2019-08-22 11:14 | PM.OBDSVD ---
DS: Diagnosis Admitting Diagnosis Admitting Diagnosis: Gestational hypertension OB - DS: Summary Hospital Course Time spent discussing smoking cessation with patient: 3 to 10 minutes OB Procedures : Ultrasound OB Procedures Intrapartum: Spontaneous Vag Delivery OB Procedures: : None Peripartum Data Infant Delivery Method: Natural Vaginal Laceration description: None complications: none Status at Discharge Functional status at discharge: independent ambulation Overall status at discharge: patient is back to baseline Time Spent with Patient Time attestation: Total time spent providing and/or coordinating discharge services: DS: Data Data Completed and Pending Pending studies at discharge: Pending at discharge 08/20/19 22:34 Surgical [PTH] Routine Discharge Plan Discharge Attending physician on discharge: Conrad Marte Discharging Clinician: Conrad Marte Anticipated Discharge Date/Time: 08/22/19 11:16 Patient Disposition: Home Health Service Activity: may shower and pelvic rest Diet: regular Discharge Instructions: Gestational hypertension precautions. Call for severe headache, visual disturbances, right upper quadrant or mid abdominal pain. Take daily vitamin. May take over the counter Tylenol or Ibuprofen for pain. Stand Alone Forms: General Discharge Information Follow-up/Referrals: Conrad Marte MD [Physician] - Call for Appointment Discharge Medications: No Action One-A-Day Women's 1 28 mg iron- 800 mcg-235 mg capsule 1 cap PO DAILY RF: 0 cholecalciferol (vitamin D3) [Vitamin D3] 50 mcg (2,000 unit) Capsule 2,000 unit PO DAILY RF: 0 acetaminophen [Tylenol] 325 mg Tablet 325 mg PO Q4H PRN (Reason: Pain/Fever) RF: 0 calcium carbonate [Tums] 200 mg calcium (500 mg) Tablet,Chewable 200 mg PO QID PRN (Reason: Heartburn) RF: 0 Date of admission: 08/19/19 17:52 Primary Care Provider: UNKNOWN,DOCTOR Admitting Provider: Conrad Marte Attending physician on admission: Conrad Marte
[2019-08-23 10:48] VITALS: BP 132/79; PULSE 67; RESP 20; TEMP 37.1
== END 2019-08-22 12:27 | disposition home or self-care (01) | DRG 806 ==
LOC: ANHLDR 18:49 → ANHOB2 08-21 00:38
PROVIDERS: Admitting Provider Student in an Organized Health Care Education/Training Program; Visit Provider Obstetrics & Gynecology
DX: O13.4 Gestational [pregnancy-induced] hypertension without significant proteinuria, complicating childbirth (principal); O41.03X0 Oligohydramnios, third trimester, not applicable or unspecified; Z37.0 Single live birth; Z3A.37 37 weeks gestation of pregnancy; O36.8330 Maternal care for abnormalities of the fetal heart rate or rhythm, third trimester, not applicable or unspecified; O99.214 Obesity complicating childbirth; E66.9 Obesity, unspecified; O69.81X0 Labor and delivery complicated by cord around neck, without compression, not applicable or unspecified
CPT/HCPCS: 36415; 80053; 85014; 85018; 85025; 86592; 86850; 86900; 86901; 88307; A9270; J1200; J2590; J2795; J7120

== ENCOUNTER → 2023-03-09 08:26 | Outpatient (CLI) | payer BC, SELFPAY ==
--- NOTE | ~2023-03-09 | US_ITS ---
EXAMINATION: US pelvic complete w TV DATE: 03/09/2023 08:52 INDICATION: Benign ovarian neoplasm. TECHNIQUE: Multiple transabdominal and transvaginal sonographic images of the pelvis were obtained. COMPARISON: CT abdomen and pelvis 04/18/2012 FINDINGS: TRANSABDOMINAL ULTRASOUND: The uterus measures 10.8 x 6.3 x 4.7. There is no free fluid in the pelvis. TRANSVAGINAL ULTRASOUND: The endometrial complex measures 9 mm in thickness. The right ovary measures 2.6 x 2.2 x 2.5 cm. The left ovary measures 2.9 x 1.8 x 2.5 cm. There is normal vascular flow in the ovaries. IMPRESSION: 1. Normal pelvis. Reviewed, dictated and finalized at location E. IMPRESSION: 1. Normal pelvis.
== END ==
PROVIDERS: PCP Family Medicine; Visit Provider Obstetrics & Gynecology
DX: D36.9 Benign neoplasm, unspecified site (principal)
CPT/HCPCS: 76830; 76856

== ENCOUNTER 2024-04-08 07:47 | Outpatient (CLI) | payer BC, SELFPAY ==
--- NOTE | ~2024-04-08 | MM_ITS ---
EXAMINATION: MM diagnostic nathan BI w caridad HISTORY: Family history of breast cancer TECHNIQUE: 3-D tomosynthesis images of the breasts were performed and synthetic 2-D images were gener ated. CAD analysis was submitted and interpreted. COMPARISON: 08/08/2009 BREAST PARENCHYMAL COMPOSITION:Not Dense. The breasts are almost entirely fatty FINDINGS: No suspicious mass lesion or distortion seen. No suspicious mammographic or calcification s een. Parenchymal pattern is relatively similar to prior exam given the time interval involved. IMPRESSION: No mammographic evidence for malignancy. BI-RADS Category 1: Negative Reviewed, dictated and finalized at location . 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
== END 2024-04-08 07:48 | disposition home or self-care (01) ==
LOC: MICIMG 07:48
PROVIDERS: PCP Obstetrics & Gynecology; Visit Provider Obstetrics & Gynecology
DX: Z91.89 Other specified personal risk factors, not elsewhere classified (principal); Z80.3 Family history of malignant neoplasm of breast
CPT/HCPCS: 77062; 77066; G0279